=== PATIENT | male | born 1990 | race American Indian/Alaskan Native ===

== ENCOUNTER 2017-02-03 01:21 | Emergency (ER) | payer SELFPAY ==
[2017-02-03 01:23] VITALS: BMI 24.9
[2017-02-03] MEDS ORDERED: Silver Sulfadiazine 1% Cream (20 gm) TOP STA (01:31)
[2017-02-03] MEDS ORDERED: Oxycodone/Acetaminophen 5/325 mg Tab PO STA (01:31)
--- NOTE | 2017-02-03 01:31 | ED PDOC ---
Arrival/HPI - General Chief Complaint: Burn Time Seen by Provider: 02/03/17 01:27 Historian: Patient - History of Present Illness Narrative History of Present Illness (Text): 02/03/17 01:31 Valery Sparks is a 26 year old male who presents to the ED complaining of wright to left arm. Patient states at 23:30 yesterday he spilled hot tea on to his left arm and sustained wright to the area. Patient denies any fever, chills, weakness/numbness/tingling in the extremity, nausea, vomiting, diarrhea, back pain, neck pain, headache, dizziness, or any other complaints. Time/Duration: 4-6 hours (23:30 yesterday) Symptom Onset: Sudden Symptom Course: Unchanged Activities at Onset: Light Context: Home Past Medical History - Provider Review Nursing Documentation Reviewed: Yes - Infectious Disease Hx of Infectious Diseases: None - Psychiatric Hx Substance Use: No - Surgical History Hx Appendectomy: Yes - Anesthesia Hx Anesthesia: Yes Hx Anesthesia Reactions: No Hx Malignant Hyperthermia: No Family/Social History - Physician Review Nursing Documentation Reviewed: Yes Family/Social History: No Known Family HX Smoking Status: Never Smoked Hx Alcohol Use: Yes Hx Substance Use: No Allergies/Home Meds Allergies/Adverse Reactions: Allergies No Known Allergies Allergy (Verified 02/03/17 01:23) Review of Systems - Physician Review All systems were reviewed & negative as marked: Yes - Review of Systems Constitutional: Normal. absent: Fevers Eyes: Normal ENT: Normal Respiratory: Normal. absent: SOB, Cough Cardiovascular: Normal. absent: Chest Pain Gastrointestinal: Normal. absent: Abdominal Pain, Diarrhea, Nausea, Vomiting Genitourinary Male: Normal. absent: Dysuria, Frequency, Hematuria Musculoskeletal: Normal. absent: Back Pain, Neck Pain Skin: Other (+wright to left arm). absent: Rash Neurological: Normal. absent: Headache, Dizziness Endocrine: Normal Hemo/Lymphatic: Normal Psychiatric: Normal Physical Exam Vital Signs Reviewed: Yes Vital Signs Temp Pulse Resp BP Pulse Ox 02/03/17 03:19 68 16 120/70 100 02/03/17 01:33 97.1 F L 68 18 141/86 100 Temperature: Afebrile Blood Pressure: Normal Pulse: Regular Respiratory Rate: Normal Appearance: Positive for: Well-Appearing, Non-Toxic, Comfortable Pain Distress: None Mental Status: Positive for: Alert and Oriented X 3 - Systems Exam Head: Present: Atraumatic, Normocephalic Pupils: Present: PERRL Extroacular Muscles: Present: EOMI Conjunctiva: Present: Normal Mouth: Present: Moist Mucous Membranes Neck: Present: Normal Range of Motion Respiratory/Chest: Present: Clear to Auscultation, Good Air Exchange. No: Respiratory Distress, Accessory Muscle Use Cardiovascular: Present: Regular Rate and Rhythm, Normal S1, S2. No: Murmurs Abdomen: Present: Normal Bowel Sounds. No: Tenderness, Distention, Peritoneal Signs Upper Extremity: Present: Other (1st degree wright to left arm, blisters to brachial area, non-circumferential). No: Cyanosis, Edema Lower Extremity: Present: Normal Inspection. No: Edema Neurological: Present: GCS=15, CN II-XII Intact, Speech Normal Skin: Present: Warm, Dry, Normal Color. No: Rashes Psychiatric: Present: Alert, Oriented x 3, Normal Insight, Normal Concentration Medical Decision Making ED Course and Treatment: 02/03/17 01:31 Impression: 26 year old male complaining of left arm burn since 23:30 yesterday. Differential Diagnosis include but are not limited to: 1st degree burn Plan: -- Percocet -- Silvadene -- Reassess and disposition Progress Notes: 02/03/17 03:05 On re-evaluation, the patient feels better and is in no acute distress. I have discussed the results and plan with the patient, who expresses understanding. Patient in agreement with plan to discharged home. Patient is stable for discharge. Patient was instructed to follow up with physician/clinic in 1-2 days or return if symptoms worsen or new concerning symptoms arise. Re-evaluation Time: 03:07 Reassessment Condition: Re-examined, Improved - Medication Orders Current Medication Orders: Discontinued Medications Oxycodone/Acetaminophen (Percocet 5/325 Mg Tab) 1 tab PO STAT STA Stop: 02/03/17 01:32 Last Admin: 02/03/17 02:07 Dose: 1 TAB Silver Sulfadiazine (Silvadene 1% 20 Gm) 0 ea TOP STAT STA Stop: 02/03/17 01:32 Last Admin: 02/03/17 02:07 Dose: 1 APPLIC - Scribe Statement The provider has reviewed the documentation as recorded by the Scribe Elva Paula Provider Attestation: All medical record entries made by the Tatyanaibe were at my direction and personally dictated by me. I have reviewed the chart and agree that the record accurately reflects my personal performance of the history, physical exam, medical decision making, and the department course for this patient. I have also personally directed, reviewed, and agree with the discharge instructions and disposition. Disposition/Present on Arrival - Present on Arrival Any Indicators Present on Arrival: No History of DVT/PE: No History of Uncontrolled Diabetes: No Urinary Catheter: No History of Decub. Ulcer: No History Surgical Site Infection Following: None - Disposition Have Diagnosis and Disposition been Completed?: Yes Diagnosis: Burn of left upper extremity Disposition: HOME/ ROUTINE Disposition Time: 03:07 Condition: FAIR Discharge Instructions (ExitCare): Second Degree Burn (ED), Flash Burn of Skin (ED) Additional Instructions: return in 48 hrs for wound check Prescriptions: oxyCODONE/Acetaminophen [Percocet 5/325 mg Tab] 1 ea PO QID #12 tab Silver Sulfadiazine 1% 20 gm [Silvadene 1% 20 gm] 1 ea EXT BID #1 tube
[2017-02-03 01:34] VITALS: PULSE 68; TEMP 97.1; O2SAT 100
[2017-02-03 03:20] VITALS: BP 120/70; RESP 16
== END 2017-02-03 03:30 | disposition home or self-care (01) ==
LOC: ED 01:21
DX: T22.10XA Burn of first degree of shoulder and upper limb, except wrist and hand, unspecified site, initial encounter (principal); X10.0XXA Contact with hot drinks, initial encounter; Y92.009 Unspecified place in unspecified non-institutional (private) residence as the place of occurrence of the external cause

== ENCOUNTER 2017-04-17 16:02 | Emergency (ER) | payer OTHER ==
[2017-04-17 16:03] VITALS: BMI 24.9
[2017-04-17 16:18] VITALS: BP 124/81
--- NOTE | 2017-04-17 16:27 | ED PDOC ---
Arrival/HPI - General Chief Complaint: Lower Extremity Problem/Injury Time Seen by Provider: 04/17/17 16:19 Historian: Patient - History of Present Illness Narrative History of Present Illness (Text): 04/17/17 16:25 26 y/o male, no pmh, nkda, c/o rt. lateral foot pain s/p inversion injury x 1 day. Pt. was walking, twisted the rt. foot, been having pain, no numbness or tingling, here at the ER for evaluation, no calf pain, no chest pain or shortness of breath, no palpitation, no night sweat, no dizziness, no other medical or psychological complaints. Past Medical History - Provider Review Nursing Documentation Reviewed: Yes - Infectious Disease Hx of Infectious Diseases: None - Cardiac Hx Hypertension: Yes - Pulmonary Hx Respiratory Disorders: No - Neurological Hx Neurological Disorder: No - HEENT Other/Comment: NYSTAGMUS - Renal Hx Renal Disorder: No - Endocrine/Metabolic Hx Endocrine Disorders: No - Hematological/Oncological Hx Blood Disorders: No - Integumentary Hx Dermatological Disorder: No - Musculoskeletal/Rheumatological Other/Comment: FX TO R FOOT - Gastrointestinal Hx Gastrointestinal Disorders: No - Genitourinary/Gynecological Hx Genitourinary Disorders: No - Psychiatric Hx Psychophysiologic Disorder: No Hx Substance Use: No - Surgical History Hx Appendectomy: Yes - Anesthesia Hx Anesthesia: Yes Hx Anesthesia Reactions: No Hx Malignant Hyperthermia: No Family/Social History - Physician Review Nursing Documentation Reviewed: Yes Family/Social History: Unknown Family HX Smoking Status: Never Smoked Hx Alcohol Use: Yes Hx Substance Use: No Allergies/Home Meds Allergies/Adverse Reactions: Allergies No Known Allergies Allergy (Verified 04/17/17 16:12) Review of Systems - Review of Systems Constitutional: absent: Fatigue, Fevers Eyes: absent: Vision Changes ENT: absent: Hearing Changes Respiratory: absent: SOB, Cough Cardiovascular: absent: Chest Pain Gastrointestinal: absent: Abdominal Pain, Diarrhea, Nausea, Vomiting Musculoskeletal: Arthralgias. absent: Back Pain, Neck Pain, Joint Swelling, Myalgias Skin: absent: Rash, Pruritis, Skin Lesions, Laceration Neurological: absent: Headache, Dizziness Psychiatric: absent: Anxiety, Depression, Suicidal Ideation Physical Exam Vital Signs Reviewed: Yes Vital Signs Temp Pulse Resp BP Pulse Ox 04/17/17 18:28 98.0 F 18 98 04/17/17 16:39 99.1 F 79 16 99 04/17/17 16:12 99.1 F 71 16 124/81 97 Temperature: Afebrile Blood Pressure: Normal Pulse: Regular Respiratory Rate: Normal Appearance: Positive for: Well-Appearing, Non-Toxic, Comfortable Pain Distress: Moderate Mental Status: Positive for: Alert and Oriented X 3 - Systems Exam Head: Present: Atraumatic, Normocephalic Pupils: Present: PERRL Extroacular Muscles: Present: EOMI Conjunctiva: Present: Normal Mouth: Present: Moist Mucous Membranes Neck: Present: Normal Range of Motion Respiratory/Chest: Present: Clear to Auscultation, Good Air Exchange. No: Respiratory Distress, Accessory Muscle Use Cardiovascular: Present: Regular Rate and Rhythm, Normal S1, S2. No: Murmurs Abdomen: Present: Normal Bowel Sounds. No: Tenderness, Distention, Peritoneal Signs Back: Present: Normal Inspection Upper Extremity: Present: Normal Inspection. No: Cyanosis, Edema Lower Extremity: Present: Normal Inspection, Other (Rt. ankle/foot: +ttp and mild ecchymosis on the lateral aspect of the 5th base metatarsal region, skin intact, no laceration or abrasion, FROM without limitation, sensation intact, motor 5,5 +DPPT pulses, capillary refill< 2 seconds, neurovascular intact. ). No: Edema Neurological: Present: GCS=15, Speech Normal Skin: Present: Warm, Dry, Normal Color. No: Rashes Psychiatric: Present: Alert, Oriented x 3, Normal Insight, Normal Concentration Medical Decision Making ED Course and Treatment: 04/17/17 16:27 -rt. foot xray -motrin -observe and reassess 04/17/17 17:13 -xray show +fracture on the base of the 5th metatarsal. -Posterior splint applied by me with neurovascular intact. -Discharge home with naproxen, posterior splint, crutches, ice compression, non- weight bearing, follow up with your own pmd and buyer intern within 2 days, return to the ER for any new or worsening signs or symptoms. - RAD Interpretation Radiology Orders: 04/17/17 16:24 FOOT RIGHT 3 VIEWS ROUTINE [RAD] Stat transversed fracture on the base of 5th metatarsal. Collar Feller: Radiologist - Medication Orders Current Medication Orders: Discontinued Medications Ibuprofen (Motrin Tab) 800 mg PO STAT STA Stop: 04/17/17 16:25 Last Admin: 04/17/17 16:37 Dose: 800 mg - PA / PIPE FINISHING SUPERVISOR / Resident Statement MD/DO has reviewed & agrees with the documentation as recorded. Disposition/Present on Arrival - Present on Arrival Any Indicators Present on Arrival: No History of DVT/PE: No History of Uncontrolled Diabetes: No Urinary Catheter: No History of Decub. Ulcer: No History Surgical Site Infection Following: None - Disposition Have Diagnosis and Disposition been Completed?: Yes Diagnosis: Foot fracture Disposition: HOME/ ROUTINE Disposition Time: 16:27 Patient Plan: Discharge Condition: GOOD Additional Instructions: Discharge home with naproxen, posterior splint, crutches, ice compression, non- weight bearing, follow up with your own pmd and buyer intern within 2 days, return to the ER for any new or worsening signs or symptoms. Prescriptions: Naproxen 500 mg PO BID PRN #20 tab PRN Reason: Other Referrals: PCP,NO [Primary Care Provider] - Follow up with primary Daphnie Hollins DPM [Staff Provider] - Follow up with primary Forms: WORK NOTE
[2017-04-17 16:40] VITALS: PULSE 79
[2017-04-17 18:30] VITALS: RESP 18; TEMP 98; O2SAT 98
--- NOTE | 2017-04-18 09:39 | RAD ---
PROCEDURE: Right Foot Radiographs. HISTORY: rt. lateral foot pain s/p inversion injury COMPARISON: None. FINDINGS: BONES: There is a displaced transverse fracture through the base of the 5th metatarsal JOINTS: Normal. SOFT TISSUES: Normal. OTHER FINDINGS: None. IMPRESSION: There is a displaced transverse fracture through the base of the 5th metatarsal
== END 2017-04-17 18:31 | disposition home or self-care (01) ==
LOC: ED 16:02
DX: S92.351A Displaced fracture of fifth metatarsal bone, right foot, initial encounter for closed fracture (principal); X50.1XXA Overexertion from prolonged static or awkward postures, initial encounter; Y93.01 Activity, walking, marching and hiking; I10 Essential (primary) hypertension